=== PATIENT | female | born 1965 | race American Indian/Alaskan Native ===

== ENCOUNTER 2018-03-08 08:46 | Emergency (ER) | payer OTHER ==
[2018-03-08 08:46] VITALS: BMI 31.6
[2018-03-08 09:00] VITALS: BP 130/87; PULSE 79; TEMP 98.1; O2SAT 100
--- NOTE | 2018-03-08 09:11 | C.PDOC ---
History Of Present Illness L ANKLE INJURY ONSET YEST. ACCID TWISTED WHILE STEPPING OFF CURB. AMBUL ON SCENE. WORSENING PAIN, SWELLING TODAY WORSE W WT BEAR. DENIES DIRECT TRAUMA. NO PAIN MEDS TRIED, DENIES OTHER ASSOC INJURY EXAM NAD EXT LLE +MILD SWELL DISTAL W LOCAL TEND LAT MAL. NO GROSS DEFORM. SKIN INTACT NEURO INTACT Time Seen by Provider: 03/08/18 09:10 Chief Complaint (Nursing): Lower Extremity Problem/Injury History Per: Patient History/Exam Limitations: no limitations Onset/Duration Of Symptoms: Days Current Symptoms Are (Timing): Still Present Severity: Moderate - Ankle/Foot Description Of Injury: Twisted (left ankle) Past Medical History Reviewed: Historical Data, Nursing Documentation, Vital Signs Vital Signs: Last Vital Signs Temp 98.1 F 03/08/18 08:53 Pulse 79 03/08/18 08:53 Resp 18 03/08/18 09:41 BP 130/87 03/08/18 08:53 Pulse Ox 100 03/08/18 09:38 - Medical History PMH: HTN Other Surgeries: Hx of surgeries Family History: States: No Known Family Hx - Social History Hx Alcohol Use: Yes Hx Substance Use: No - Immunization History Hx Tetanus Toxoid Vaccination: No Hx Influenza Vaccination: Yes Hx Pneumococcal Vaccination: No Review Of Systems Except As Marked, All Systems Reviewed And Found Negative. Musculoskeletal: Positive for: Other (left ankle pain) Neurological: Negative for: Weakness, Numbness Physical Exam - Physical Exam Appears: No Acute Distress Skin: Normal Color, Warm, Dry Head: Atraumatic, Normacephalic Eye(s): bilateral: Normal Inspection Respiratory: Other (NARD) Extremity: Normal ROM, No Deformity, Other (LLE: mild swelling distal w local tenderness lateral mallelous) Neurological/Psych: Oriented x3, Normal Speech ED Course And Treatment O2 Sat by Pulse Oximetry: 100 (RA) Pulse Ox Interpretation: Normal - Other Rad l ankle ne X-Ray: Interpreted by Me (NEG) L FOOT X-Ray: Interpreted by Me (NEG) Medical Decision Making Medical Decision Making: Plan: --X-Ray- Left Knee --X-Ray- Left Foot Disposition Counseled Patient/Family Regarding: Studies Performed, Diagnosis, Need For Followup - Disposition Referrals: Radha Crabtree DPM [Staff Provider] - YOUR,PMD [Other] Disposition: HOME/ ROUTINE Disposition Time: 09:32 Condition: IMPROVED Instructions: Ankle Sprain (DC) Forms: [facility] (Faroese), Work Excuse - Clinical Impression Clinical Impression: Ankle sprain - Scribe Statement The provider has reviewed the documentation as recorded by the Rockyibe Dennys Dutton Provider Attestation: All medical record entries made by the Rockyibe were at my direction and personally dictated by me. I have reviewed the chart and agree that the record accurately reflects my personal performance of the history, physical exam, medical decision making, and the department course for this patient. I have also personally directed, reviewed, and agree with the discharge instructions and disposition. Orthopedic Care Application Of:: Ankle Air Cast
[2018-03-08 09:42] VITALS: RESP 18
--- NOTE | 2018-03-08 09:48 | RAD ---
Date of service: 03/08/2018 PROCEDURE: Left Foot Radiographs. HISTORY: TRAUMA COMPARISON: None. FINDINGS: BONES: No fracture. JOINTS: First metatarsal-phalangeal joint arthrosis and hallux valgus present SOFT TISSUES: Normal. OTHER FINDINGS: None. IMPRESSION: No fracture. First metatarsal-phalangeal joint arthrosis and hallux valgus present
--- NOTE | 2018-03-08 10:27 | RAD ---
Date of service: 03/08/2018 PROCEDURE: Left Ankle Radiographs. HISTORY: TRAUMA COMPARISON: None FINDINGS: BONES: Normal. No fracture. JOINTS: Normal. No osteoarthritis. Ankle mortise maintained. Talar dome intact SOFT TISSUES: Normal. OTHER FINDINGS: None. IMPRESSION: Normal left ankle radiographs. If symptoms persist or occult fracture suspected clinically consider repeat radiographs in 7-10 days as most fractures should become radiographically evident in this timeframe.
== END 2018-03-08 09:42 | disposition home or self-care (01) ==
LOC: C.ER 08:46
DX: S93.402A Sprain of unspecified ligament of left ankle, initial encounter (principal); X50.9XXA Other and unspecified overexertion or strenuous movements or postures, initial encounter

== ENCOUNTER 2018-05-17 14:39 | Emergency (ER) | payer OTHER ==
[2018-05-17 14:40] VITALS: BMI 31.6
[2018-05-17 14:47] VITALS: BP 122/84; PULSE 55; RESP 16; TEMP 97.5; O2SAT 95
--- NOTE | 2018-05-17 14:53 | PCM.RRT ---
VICE PRESIDENT OF OPERATIONS Nurses Assessment - Situation Date: 05/17/18 Time VICE PRESIDENT OF OPERATIONS was called: 14:30 VICE PRESIDENT OF OPERATIONS Responder Arrival Time:: 14:33 VICE PRESIDENT OF OPERATIONS Location:: [address] [place] [address] Room Number: [facility] VICE PRESIDENT OF OPERATIONS Called By: RN - IV IV Inserted during VICE PRESIDENT OF OPERATIONS?: No - Respiratory VICE PRESIDENT OF OPERATIONS Delivery Method: Room Air Received Nebulizer Treatments: No Was the Patient Ventilated with Bag/Mask 100% O2?: No - Medication Medications Administered During VICE PRESIDENT OF OPERATIONS: none - Vital Signs Vital Signs: BP 158/89 HR 74
--- NOTE | 2018-05-17 15:05 | PCM.RRT ---
ACQUISITION COST ESTIMATOR Nurses Assessment - Situation Date: 05/17/18 Time ACQUISITION COST ESTIMATOR was called: 14:26 ACQUISITION COST ESTIMATOR Responder Arrival Time:: 14:28 ACQUISITION COST ESTIMATOR Location:: [address] [place] [address] ACQUISITION COST ESTIMATOR Called By: Other Disciplines - IV IV Inserted during ACQUISITION COST ESTIMATOR?: No - Diagnostic Test Ordered EKG: No Chest X-Ray: No CT Scan: No I.Reason for ACQUISITION COST ESTIMATOR - A) Acute Change in Patient: (Select all that apply): Staff member or family is worried about patient Subjective: Rapid was called at 1426 after 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 Patient denies feeling dizzy, lightheaded or losing consciousness. She denies hitting her head when she fell. She states she landed on her left knee and her left sided. She admits she tripped and fell a few weeks ago spraining her right ankle. She states she was evaluated for her right ankle at the time, which was negative for fractures. She now complains of left knee pain. She states she is able to get up off the floor without difficulty. She remains alert and awake during the episode. Vitals on arrival: HR 158/89 HR 74 - Neurological Status (Select all that apply): Alert, Responsive, Oriented, Verbal, Follows Commands - Respiratory Oxygen Delivery Method: Room Air - Constitutional Appears: Well, No Acute Distress - Head Head Exam: ATRAUMATIC, NORMOCEPHALIC - Eyes Eye Exam: EOMI - Neurological Exam Neurological Exam: Alert, Awake, Oriented x3 Additional exam: Left knee: no obvious deformity. no lacerations. no obvious bleeding. no swelling noted. (+) mild tenderness to palpation at left inferior knee. Able to get up off the floor. Plan - Assessment of Findings&Treatment Plan Patient remained alert, awake and oriented. Patient was transported to ED for further evaluation of left knee pain. Case discussed with Dr. Nikolai Sommers, PGY1
--- NOTE | 2018-05-17 16:12 | C.PDOC ---
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 Patient states that she was walking and tripped, she fell forward onto her left knee. Denies head strike or LOC. Patient reports that the pain is sharp and worse with walking. Otherwise, she denies having headache, visual changes, nausea,vomiting, abdominal pain, hip pain, ankle pain, distal numbness, and parasthesias. Time Seen by Provider: 05/17/18 14:44 Chief Complaint (Nursing): Lower Extremity Problem/Injury History Per: Patient History/Exam Limitations: no limitations Onset/Duration Of Symptoms: Mins Current Symptoms Are (Timing): Still Present Severity: Moderate Past Medical History Reviewed: Historical Data, Nursing Documentation, Vital Signs Vital Signs: Last Vital Signs Temp 97.5 F L 05/17/18 14:46 Pulse 55 L 05/17/18 14:46 Resp 16 05/17/18 14:46 BP 122/84 05/17/18 14:46 Pulse Ox 95 05/17/18 14:46 - Medical History PMH: HTN Other Surgeries: Hx of surgeries Family History: States: No Known Family Hx - Social History Hx Alcohol Use: Yes Hx Substance Use: No - Immunization History Hx Tetanus Toxoid Vaccination: No Hx Influenza Vaccination: Yes Hx Pneumococcal Vaccination: No Review Of Systems Except As Marked, All Systems Reviewed And Found Negative. Eyes: Negative for: Vision Change Cardiovascular: Negative for: Chest Pain, Palpitations Respiratory: Negative for: Cough, Shortness of Breath Gastrointestinal: Negative for: Nausea, Vomiting, Abdominal Pain Musculoskeletal: Positive for: Other (left knee pain and swelling) Skin: Negative for: Bruising Neurological: Negative for: Weakness, Numbness, Headache, Dizziness Physical Exam - Physical Exam Appears: Well, Non-toxic, No Acute Distress Skin: Normal Color, Warm, Dry Head: Atraumatic, Normacephalic Eye(s): bilateral: Normal Inspection, PERRL, EOMI Nose: Normal Oral Mucosa: Moist Neck: Supple Chest: Symmetrical Extremity: Normal ROM, Tenderness (mild tenderness to anterior left knee over the tibial tubercle), No Deformity, Swelling (mild swelling to anterior left knee over the tibial tubercle), Other (mild erythema to anterior left knee over the tibial tubercle) Neurological/Psych: Oriented x3, Normal Speech, Normal Motor, Normal Sensation ED Course And Treatment O2 Sat by Pulse Oximetry: 95 (RA) Pulse Ox Interpretation: Normal Medical Decision Making Medical Decision Making: Initial Plan: --Toradol IM --X-Ray-Left Knee X-Ray-Left Knee Results FINDINGS: BONES: No acute displaced fracture. Degenerative changes including tenting of the intercondylar notch. JOINTS: No dislocation. Tricompartmental joint space narrowing. Infrapatellar enthesophyte. JOINT EFFUSION: No significant joint effusion. OTHER FINDINGS: None. IMPRESSION: Degenerative changes. No acute displaced fracture, dislocation, or significant joint effusion identified. Pt reports decreased pain after medication. Plan of care discussed with pt who agrees and understands. Given strict instructions on when to return to ER to include worsening pain, swelling, or other new symptoms. Pt stable for discharge home. Impression: Left knee contusion Plan: * RICE * Ibuprofen * JAQUELINE wrap * Followup with primary doctor within 2 days * Return to ER for new/worsening symptoms Disposition - Disposition Referrals: Ancelmo Wilson III, MD [Staff Provider] - Disposition: HOME/ ROUTINE Disposition Time: 16:45 Condition: IMPROVED Additional Instructions: Rest, ice, elevate injured knee keep injured knee compressed No strenuous activity Followup with primary doctor within 2 days Followup with orthopedics for persistent pain Return to ER for new/worsening symptoms Instructions: Contusion (DC) Forms: [facility] (Mohawk), Work Excuse - Clinical Impression Clinical Impression: Knee contusion - PA / AIR CONDITIONING INSTALLER / Resident Statement MD/DO has reviewed & agrees with the documentation as recorded. - Scribe Statement The provider has reviewed the documentation as recorded by the Candi Dutton Provider Attestation All medical record entries made by the Candi were at my direction and personally dictated by me. I have reviewed the chart and agree that the record accurately reflects my personal performance of the history, physical exam, medical decision making, and the department course for this patient. I have also personally directed, reviewed, and agree with the discharge instructions and disposition.
--- NOTE | 2018-05-17 16:27 | RAD ---
PROCEDURE: Left Knee Radiographs. HISTORY: Trauma, rule out fracture COMPARISON: No prior. FINDINGS: BONES: No acute displaced fracture. Degenerative changes including tenting of the intercondylar notch. JOINTS: No dislocation. Tricompartmental joint space narrowing. Infrapatellar enthesophyte. JOINT EFFUSION: No significant joint effusion. OTHER FINDINGS: None. IMPRESSION: Degenerative changes. No acute displaced fracture, dislocation, or significant joint effusion identified. If symptoms persist, or if there is continued clinical concern, x-ray follow-up in 7-10 days should be considered.
== END 2018-05-17 17:07 | disposition home or self-care (01) ==
LOC: C.ER 14:39
DX: S80.02XA Contusion of left knee, initial encounter (principal); W01.0XXA Fall on same level from slipping, tripping and stumbling without subsequent striking against object, initial encounter; Y92.9 Unspecified place or not applicable
CPT/HCPCS: 73562; 96372; 99285; J1885